=== PATIENT | female | born 1950 | race American Indian/Alaskan Native ===

== ENCOUNTER 2020-01-25 09:38 | Emergency (ER) | payer OTHER ==
[2020-01-25] MEDS ORDERED: levETIRAcetam 1000 MG/NS 0.75% 1,000 MG/100 ML BAG IV ONE (09:54)
--- NOTE | 2020-01-25 09:56 | Emergency Department Report ---
ED Seizure HPI - General Stated Complaint: SEIZURE Source: patient, EMS Limitations: No Limitations - History of Present Illness Initial Comments: 69-year-old female the past medical history of hypertension and asthma presents to the hospital after having a seizure prior to arrival. Patient does not have any previous history of seizures. Patient remembers being in the bed and thinking about getting up to use the bathroom. Family reports that they witnessed patient having generalized shaking for approximately 3 minutes. Upon EMS arrival they found patient in the bed and postictal with urinary incontinence. In their present she was confused/postictal for 6 to 8 minutes until return to baseline. Upon arrival to the ED patient is asymptomatic and alert and oriented x3. Patient does complain of ongoing dry cough secondary to allergies and denies fevers or shortness of breath patient takes albuterol and hydrochlorothiazide. EMS reports glucose of 98. PMD: [facility] - Related Data Previous Rx's Medication Instructions Recorded Last Taken Type levETIRAcetam [Keppra TAB] 500 mg PO BID #60 tablet 01/25/20 Unknown Rx Allergies Allergy/AdvReac Type Severity Reaction Status Date / Time Penicillins Allergy Unknown Verified 01/25/20 09:57 ED Review of Systems ROS: Stated complaint: SEIZURE Other details as noted in HPI Comment: All other systems reviewed and negative ED Past Medical Hx - Medications Home Medications: Home Medications Medication Instructions Recorded Confirmed Last Taken Type levETIRAcetam [Keppra TAB] 500 mg PO BID #60 tablet 01/25/20 Unknown Rx ED Physical Exam - Other Other exam information: General: No acute distress Head: Atraumatic Eyes: normal appearance, pupils equal reactive to light, extraocular movements intact ENT: Moist mucous membranes, no tongue laceration Neck: Normal appearance, no midline tenderness Chest: Clear to auscultation bilaterally CV: Regular rate and rhythm Abdomen: Soft, normal bowel sounds, nontender, nondistended, no rebound or guarding Back: Normal inspection Extremity: Normal inspection, full range of motion Neuro: Alert O x 3, no facial asymmetry, speech clear, no gross motor sensory deficit, [id number] function intact Psych: Appropriate behavior Skin: No rash ED Course Vital Signs 01/25/20 01/25/20 01/25/20 09:49 09:58 10:00 Temperature 98 F Pulse Rate 84 Respiratory 16 Rate Blood Pressure 110/69 110/69 O2 Sat by Pulse 100 98 99 Oximetry 01/25/20 01/25/20 01/25/20 10:20 10:30 10:45 Temperature Pulse Rate Respiratory Rate Blood Pressure 110/69 141/78 133/73 O2 Sat by Pulse 100 98 99 Oximetry - Consultations Consultation #1: 01/25/20 12:32 Case d/w Dr Yan with [facility]. They will call her to schedule a tele neuro appointment. ED Medical Decision Making - Lab Data Result diagrams: 01/25/20 09:57 01/25/20 09:57 Lab Results 01/25/20 01/25/20 Range/Units 09:57 09:57 WBC 6.5 (4.5-11.0) K/mm3 RBC 4.12 (3.65-5.03) M/mm3 Hgb 12.5 (10.1-14.3) gm/dl Hct 37.5 (30.3-42.9) % MCV 91 (79-97) fl MCH 30 (28-32) pg MCHC 33 (30-34) % RDW 13.2 (13.2-15.2) % Plt Count 358 (140-440) K/mm3 Lymph % (Auto) 32.2 (13.4-35.0) % [place] % (Auto) 8.0 H (0.0-7.3) % Eos % (Auto) 1.9 (0.0-4.3) % Baso % (Auto) 0.9 (0.0-1.8) % Lymph # 2.1 (1.2-5.4) K/mm3 [place] # 0.5 (0.0-0.8) K/mm3 Eos # 0.1 (0.0-0.4) K/mm3 Baso # 0.1 (0.0-0.1) K/mm3 Seg Neutrophils % 57.0 (40.0-70.0) % Seg Neutrophils # 3.7 (1.8-7.7) K/mm3 Sodium 143 (137-145) mmol/L Potassium 4.0 (3.6-5.0) mmol/L Chloride 100.7 (98-107) mmol/L Carbon Dioxide 26 (22-30) mmol/L Anion Gap 20 mmol/L BUN 12 (7-17) mg/dL Creatinine 1.0 (0.7-1.2) mg/dL Estimated GFR > 60 ml/min BUN/Creatinine Ratio 12 % Glucose 85 (65-100) mg/dL Calcium 9.5 (8.4-10.2) mg/dL Magnesium 2.20 (1.7-2.3) mg/dL - EKG Data -: EKG Interpreted by [facility] EKG shows normal: sinus rhythm, intervals (qtc 444), ST-T waves (no stemi) Rate: normal (70) - Radiology Data Radiology results: report reviewed CT HEAD WITHOUT CONTRAST INDICATION / CLINICAL INFORMATION: new onset seizure. TECHNIQUE: Axial imaging performed from the skull apex through the skull base without the use of contrast. Sagittal and coronal reformatted images. All CT scans at this location are performed us ing CT dose reduction for YASHRA by means of automated exposure control. COMPARISON: None available. FINDINGS: CEREBRAL PARENCHYMA: Mild diffuse volume loss is evident which is likely age appropriate. No significant abnormality. No acute territorial infarct. HEMORRHAGE: None. EXTRA-AXIAL SPACES: Normal in size and morphology for the patient's age. VENTRI CULAR SYSTEM: Normal in size and morphology for the patient's age. MIDLINE SHIFT OR HERNIATION: None. CEREBELLUM / BRAINSTEM: No significant abnormality. CALVARIUM: No significant abnormality. ORBITS: Normal as visualized. PARANASAL SINUSES / MASTOID AIR CELLS: Normal as visualized. SOFT TISSUES of HEAD: No significant abnormality. ADDITIONAL FINDINGS: None. IMPRESSION: No acute intracranial abnormality. CHEST 1 VIEW 10:21 AM INDICATION / CLINICAL INFORMATION: Cough and seizure. COMPARISON: None available. FINDINGS: SUPPORT DEVICES: None. HEART / MEDIASTINUM: The heart size and pulmonary vasculature are normal. The aorta is normal in caliber. LUNGS / PLEURA: No significant pulmonary or pleural abnormality. No pneumothorax. ADDITIONAL FINDINGS: There is mild generalized spondylosis. There is a probable chronic rotator cuff tear on the right. IMPRESSION: No acute findings. - Medical Decision Making Patient presents to the hospital with new onset seizure. No acute EKG, labs, or imaging abnormalities. Patient received Keppra 1 g in the ED. She has remained at baseline without any further seizure activity or neurologic symptoms. She will be discharged home with outpatient neurology follow-up with [facility]. - Differential Diagnosis New onset seizure, intracranial lesion, electrolyte abnormality Critical Care Time: No Critical care attestation.: If time is entered above; I have spent that time in minutes in the direct care of this critically ill patient, excluding procedure time. ED Disposition Clinical Impression: New onset seizure Disposition: DC-01 TO HOME OR SELFCARE Is pt being admited?: No Does the pt Need Aspirin: No Condition: Stable Instructions: New-Onset Seizure in Adults (ED) Additional Instructions: Take the medication as prescribed. Follow-up with your doctor or doctor/clinic provided. Return if symptoms worsen as indicated by your discharge instructions. Eric should be reaching out to you to schedule a follow-up neurology appointment. Prescriptions: levETIRAcetam [Keppra TAB] 500 mg PO BID #60 tablet Referrals: ERIC QUEZADA [Other] - 3-5 Days Time of Disposition: 12:43
[2020-01-25 10:18] LABS: Basophils # (Auto) 0.1 K/mm3 (0.0-0.1); Basophils % (Auto) 0.9 % (0.0-1.8); Eosinophils # (Auto) 0.1 K/mm3 (0.0-0.4); Eosinophils % (Auto) 1.9 % (0.0-4.3); Hematocrit 37.5 % (30.3-42.9); Hemoglobin 12.5 gm/dl (10.1-14.3); Lymphocytes # (Auto) 2.1 K/mm3 (1.2-5.4); Lymphocytes % (Auto) 32.2 % (13.4-35.0); Mean Corpuscular HGB Conc 33 % (30-34); Mean Corpuscular Volume 91 fl (79-97); Monocytes # (Auto) 0.5 K/mm3 (0.0-0.8); Platelet Count 358 K/mm3 (140-440); Red Blood Count 4.12 M/mm3 (3.65-5.03); Red Cell Distribution Width 13.2 % (13.2-15.2)
[2020-01-25 10:32] LABS: BUN/Creatinine Ratio 12; Blood Urea Nitrogen 12 mg/dL (7-17); Calcium 9.5 mg/dL (8.4-10.2); Hemolysis Index 9
--- NOTE | 2020-01-25 10:39 | Cat Scan Report ---
. CT HEAD WITHOUT CONTRAST INDICATION / CLINICAL INFORMATION: new onset seizure. TECHNIQUE: Axial imaging performed from the skull apex through the skull base without the use of cont rast. Sagittal and coronal reformatted images. All CT scans at this location are performed using CT dose reduction for ALARA by means of automated exposure control. COMPARISON: None available. FINDINGS: CEREBRAL PARENCHYMA: Mild diffuse volume loss is evident which is likely age appropriate. No signific ant abnormality. No acute territorial infarct. HEMORRHAGE: None. EXTRA-AXIAL SPACES: Normal in size and morphology for the patient's age. VENTRICULAR SYSTEM: Normal in size and morphology for the patient's age. MIDLINE SHIFT OR HERNIATION: None. CEREBELLUM / BRAINSTEM: No significant abnormality. CALVARIUM: No significant abnormality. ORBITS: Normal as visualized. PARANASAL SINUSES / MASTOID AIR CELLS: Normal as visualized. SOFT TISSUES of HEAD: No significant abnormality. ADDITIONAL FINDINGS: None. IMPRESSION: No acute intracranial abnormality. Signer Name: Rajesh Barnes Jr, MD Signed: 01/25/2020 10:34 AM Workstation Name: [id number]
--- NOTE | 2020-01-25 10:45 | XRay Report ---
CHEST 1 VIEW 10:21 AM INDICATION / CLINICAL INFORMATION: Cough and seizure. COMPARISON: None available. FINDINGS: SUPPORT DEVICES: None. HEART / MEDIASTINUM: The heart size and pulmonary vasculature are normal. The aorta is normal in linsday rajiv. LUNGS / PLEURA: No significant pulmonary or pleural abnormality. No pneumothorax. ADDITIONAL FINDINGS: There is mild generalized spondylosis. There is a probable chronic rotator cuff tear on the right. IMPRESSION: No acute findings. Signer Name: Luis Alfredo Singh MD Signed: 01/25/2020 10:41 AM Workstation Name: [id number]
[2020-01-25 10:55] VITALS: BP 133/73
== END 2020-01-25 12:53 | disposition home or self-care (01) ==
LOC: ED 09:38
DX: R56.9 Unspecified convulsions (principal); I10 Essential (primary) hypertension; J45.909 Unspecified asthma, uncomplicated; Z79.899 Other long term (current) drug therapy; Z98.51 Tubal ligation status
CPT/HCPCS: 36415; 70450; 71045; 80048; 83735; 85025; 93005; 96374; 99285; J1953